=== PATIENT | female | born 1990 | race Caucasian/White ===

== ENCOUNTER 2017-02-16 02:53 | Emergency (ER) | payer SELFPAY ==
[2017-02-16] MEDS ORDERED: Ketorolac 60 MG/2 ML SDV IM ONE (04:02)
--- NOTE | 2017-02-16 04:05 | EDM.PDOC ---
ED HPI ENT - General Chief Complaint: ENT Problem Stated Complaint: TOOTHACHE Time Seen by Provider: 02/16/17 02:55 Source of Information: Reports: Patient History Limitations: Reports: No limitations - History of Present Illness INITIAL COMMENTS - FREE TEXT/NARRATIVE: HISTORY AND PHYSICAL: History of present illness: [] 26-year-old female now complaining of left jaw toothache. Patient states her "enamel is worn away. " No swelling or mass intraorally and no facial swelling per patient. No fevers chills sweats or shaking chills no chest pain or shortness of air. Patient denies headache or stiff neck. Review of systems: As per history of present illness and below otherwise all systems reviewed and negative. Past medical history: As per history of present illness and as reviewed below otherwise noncontributory. Surgical history: As per history of present illness and as reviewed below otherwise noncontributory. Social history: No reported history of drug or alcohol abuse. Family history: As per history of present illness and as reviewed below otherwise noncontributory. Physical exam: HEENT: Atraumatic, normocephalic, pupils reactive, negative for conjunctival pallor or scleral icterus, mucous membranes moist, throat clear, neck supple, nontender, trachea midline. Lungs: Clear to auscultation, breath sounds equal bilaterally, chest nontender. Heart: S1S2, regular, negative for clicks, rubs, or JVD. Abdomen: Soft, nondistended, nontender. Negative for masses or hepatosplenomegaly. Negative for costovertebral tenderness. Pelvis: Stable nontender. Genitourinary: Deferred. Rectal: Deferred. Extremities: Atraumatic, negative for cords or calf pain. Neurovascular unremarkable. Neuro: Awake, alert, oriented. Cranial nerves II through XII unremarkable. Cerebellum unremarkable. Motor and sensory unremarkable throughout. Exam nonfocal. Diagnostics: [] Therapeutics: [] Impression: [] Plan: [] Definitive disposition and diagnosis as appropriate pending reevaluation and review of above. - Related Data Allergies/ADRs: Allergies Allergy/AdvReac Type Severity Reaction Status Date / Time No Known Allergies Allergy Verified 02/16/17 03:09 Home Meds: Home Meds Penicillin V Potassium [IJP: Penicillin V Potassium] 500 mg PO .EVERY 6 HOURS # 40 tab 02/16/17 [Rx] Past Medical History HEENT History: Reports: Other (see below) Other HEENT History: broken/missing teeth Gastrointestinal History: Reports: Other (see below) Other Gastrointestinal History: ruptured appy - Infectious Disease History Infectious Disease History: Reports: Chicken pox - Past Surgical History GI Surgical History: Reports: Appendectomy Musculoskeletal Surgical History: Reports: Shoulder surgery Social & Family History - Family History Endocrine/Metabolic: Reports: Diabetes, type II - Tobacco Use Smoking Status *Q: Never Smoker Second Hand Smoke Exposure: No - Caffeine Use Caffeine Use: Reports: Coffee Caffeine Use Comment: 1 daily - Recreational Drug Use Recreational Drug Use: No ED ROS ENT - Review of Systems Review Of Systems: See Below (Per history of present illness) ED EXAM, ENT - Physical Exam Exam: See Below (Per history of present illness) Course - Vital Signs Text/Narrative:: Patient with toothache. She has no evidence of visible abscess or facial swelling. #29 Tooth as a small cavity at the gumline. Patient is well-appearing in tooth is not tender to percussion patient agrees to toradoll shot and penicillin prescription him an outpatient followup with her dentist. Patient then refused a Toradol shot in the nurse offered it. She is aware to followup with her dentist and use Motrin and Tylenol as needed Last Recorded V/S: Last Vital Signs Temp 36.6 C 02/16/17 03:01 Pulse 75 02/16/17 03:01 Resp 16 02/16/17 03:01 BP 118/60 02/16/17 03:01 Pulse Ox 96 02/16/17 03:01 - Orders/Labs/Meds Orders: Active Orders 24 hr Category Date Time Status Penicillin V Potassium [Veetids] Med 02/16/17 04:15 Active 500 mg PO Q8H Medication Orders Penicillin V Potassium (Veetids) 500 mg PO Q8H KARLO Last Admin: 02/16/17 04:19 Dose: 500 mg Meds: Medications Generic Name Dose Route Start Last Admin Trade Name Freq PRN Reason Stop Dose Admin Penicillin V Potassium 500 mg 02/16/17 04:15 02/16/17 04:19 Veetids PO 500 mg Q8H KARLO Administration Discontinued Medications Generic Name Dose Route Start Last Admin Trade Name Freq PRN Reason Stop Dose Admin Ketorolac Tromethamine 60 mg 02/16/17 04:02 02/16/17 04:19 Toradol IM 02/16/17 04:03 Not Given ONETIME ONE Departure - Departure Time of Disposition: 04:05 Disposition: Home, Self-Care 01 Condition: good Clinical Impression: Toothache, Caries Prescriptions: Penicillin V Potassium [IJP: Penicillin V Potassium] 500 mg PO .EVERY 6 HOURS # 40 tab Instructions: Dental Caries Referrals: PCP,None [Primary Care Provider] - Forms: ED Department Discharge Additional Instructions: You have a cavity and the fact that it is hurting you suggestive of an evolving dental infection. Finish penicillin as prescribed. Take Motrin and Tylenol as needed for pain. Follow up with your dentist on Friday. - My Orders Last 24 Hours: My Active Orders 02/16/17 04:15 Penicillin V Potassium [Veetids] 500 mg PO Q8H - Assessment/Plan Last 24 Hours: My Active Orders 02/16/17 04:15 Penicillin V Potassium [Veetids] 500 mg PO Q8H
[2017-02-16] MEDS ORDERED: Penicillin V Potassium 500 MG Tab PO SCH (04:15)
[2017-02-16 04:37] VITALS: BP 121/58
== END 2017-02-16 04:37 | disposition home or self-care (01) ==
LOC: MW.ED 02:53
DX: K08.89 Other specified disorders of teeth and supporting structures (principal); K02.9 Dental caries, unspecified; Z90.49 Acquired absence of other specified parts of digestive tract; Z98.890 Other specified postprocedural states
CPT/HCPCS: 99282; A9270; 99283

== ENCOUNTER 2019-02-09 22:34 | Inpatient (IN) | payer OTHER ==
--- NOTE | 2019-02-10 01:40 | US ---
INDICATION: Decreased movement TECHNIQUE: Ultrasound OB pelvis transabdominal. Real-time edwards-scale imaging of the fetus was performed with color Doppler and spectral Doppler analysis of the umbilical artery without stress testing. COMPARISON: None FINDINGS: Sonographic imaging demonstrates a single living intrauterine gestation. Fetus demonstrates a regular cardiac rate of 156 beats per minute. Fetus has a cephalic orientation. The placenta lies posterior. Amniotic fluid volume appears low normal with an JELENA of 5.4 cm. motion and tone were observed. IMPRESSION: 1. Single live intrauterine gestation with a clinical age of 40 weeks 1 day in vertex position. 2. Biophysical profile score of 6 out of 8 with 0 points given for breathing. 3. Low normal amniotic fluid index of 5.4 centimeters. Dictated by Miguel Horvath MD @ Feb 10 2019 1:33AM Signed by Dr. Miguel Horvath @ Feb 10 2019 1:38AM
[2019-02-10] MEDS ORDERED: Lactated Ringers 1,000 ML IV SCH (02:00)
[2019-02-10] MEDS ORDERED: Tranexamic Acid 1,000 MG in Sodium Chloride 0.9% 100 ML IV PRN (04:46)
[2019-02-10] MEDS ORDERED: Water For Irrigation,Sterile 1,000 ML Container IRR PRN (04:46)
[2019-02-10] MEDS ORDERED: Misoprostol 200 MCG Tab PO PRN (04:46)
[2019-02-10] MEDS ORDERED: Butorphanol 1 MG/ML SDV IVPUSH PRN (04:46)
[2019-02-10] MEDS ORDERED: Terbutaline 1 MG/ML SDV SUBCUT PRN (04:46)
[2019-02-10] MEDS ORDERED: Sodium Chloride 0.9% 10 ML SDV IV PRN (04:46)
[2019-02-10] MEDS ORDERED: Lidocaine 1% 50 ML MDV INJECT PRN (04:46)
[2019-02-10] MEDS ORDERED: Methylergonovine 0.2 MG/1 ML Amp IM PRN (04:46)
[2019-02-10] MEDS ORDERED: Nalbuphine 10 MG/1 ML Vial IVPUSH PRN (04:46)
[2019-02-10] MEDS ORDERED: Sodium Chloride 0.9% 10 ML Syringe FLUSH PRN (04:46)
[2019-02-10] MEDS ORDERED: Sodium Chloride 0.9% 2.5 ML Syringe FLUSH PRN (04:46)
[2019-02-10] MEDS ORDERED: Carboprost Tromethamine 250 MCG/1 ML Amp IM PRN (04:46)
[2019-02-10] MEDS ORDERED: Oxytocin/0.9 % Sodium Chloride 30 UNIT/500 ML BAG IV SCH ×2 (05:00)
[2019-02-10] MEDS: Lactated Ringers 1,000 ML IV SCH ×2 (05:18→09:33)
[2019-02-10] MEDS ORDERED: Lidocaine 1% 0 ML ONE (12:40)
--- NOTE | 2019-02-10 13:04 | PCM.DEL ---
<FredyCriss - Last Filed: 02/10/19 12:58> L & D Note - General Info Date of Service: 02/10/19 Mother's Due Date: 02/09/19 - Delivery Note Labor: Augmented by Oxytocin Delivery Outcome: Livebirth Infant Delivery Method: Spontaneous Vaginal Delivery-Single Infant Delivery Mode: Spontaneous Presentation: Right Occiput Anterior (CANDY) Nuchal Cord: None Anesthesia Type: Epidural Amniotic Fluid Description: Clear Episiotomy Type: None Laceration: 2nd Degree Suture type: Other (Monocryl) Suture size: 3-0 Placenta: Intact Cord: 3 Vessels Estimated Blood Loss: 300 Resuscitation Needed: No Richards: Bulb Syringe, [place] Used, Warmer Used Score 1 min: 8 Score 5 min: 9 Second Stage Interventions: Reports: Pushing Effectively Delivery Comments (Free Text/Narrative):: live male born at 12:31, APGARs 8/9, weight 3620g , 3 vessel cord - General Info Date of Service: 02/10/19 - Patient Data Weight - Most Recent: 73.936 kg Lab Results Last 24 Hours: Laboratory Results - last 24 hr 02/10/19 02/10/19 Range/Units 06:00 06:00 WBC 9.73 (4.0-11.0) K/uL RBC 3.66 L (4.30-5.90) M/uL Hgb 10.9 L (12.0-16.0) g/dL Hct 31.9 L (36.0-46.0) % MCV 87.2 (80.0-98.0) fL MCH 29.8 (27.0-32.0) pg MCHC 34.2 (31.0-37.0) g/dL RDW Std Deviation 42.6 (28.0-62.0) fl RDW Coeff of Celeste 13 (11.0-15.0) % Plt Count 181 (150-400) K/uL MPV 10.90 (7.40-12.00) fL Nucleated RBC % 0.0 /100WBC Nucleated RBCs # 0 K/uL Blood Type A POSITIVE Antibody Screen NEGATIVE Med Orders - Current: Current Medications Butorphanol Tartrate (Stadol) 1 mg IVPUSH Q1H PRN PRN Reason: Pain Last Admin: 02/10/19 07:36 Dose: 1 mg Carboprost Tromethamine (Hemabate Ds) 250 mcg IM ASDIRECTED PRN PRN Reason: Post Hemorrhage Lactated Ringer's (Ringers, Lactated) 1,000 mls @ 999 mls/hr IV ASDIRECTED KARLO Last Admin: 02/10/19 01:45 Dose: 999 mls/hr Tranexamic Acid 1,000 mg/ (Sodium Chloride) 110 mls @ 660 mls/hr IV ONETIME PRN PRN Reason: Bleeding Lactated Ringer's (Ringers, Lactated) 1,000 mls @ 150 mls/hr IV ASDIRECTED KARLO Last Admin: 02/10/19 09:33 Dose: 150 mls/hr Oxytocin/Sodium Chloride (Oxytocin 30 Unit/500 Ml-Ns) 30 unit in 500 mls @ 555 mls/hr IV TITRATE KARLO Oxytocin/Sodium Chloride (Oxytocin 30 Unit/500 Ml-Ns) 30 unit in 500 mls @ 1 mls/hr IV TITRATE KARLO; Protocol Last Titration: 02/10/19 10:29 Dose: 8 munits/min, 8 mls/hr Lidocaine HCl (Xylocaine 1%) 50 ml INJECT ONETIME PRN PRN Reason: Laceration repair Methylergonovine Maleate (Methergine) 0.2 mg IM ASDIRECTED PRN PRN Reason: Post Hemorrhage Misoprostol (Cytotec) 200 mcg PO ONETIME PRN PRN Reason: Post Hemorrhage Nalbuphine HCl (Nubain) 10 mg IVPUSH Q1H PRN PRN Reason: Pain (severe 7-10) Sodium Chloride (Saline Flush) 10 ml FLUSH ASDIRECTED PRN PRN Reason: Keep Vein Open Sodium Chloride (Saline Flush) 2.5 ml FLUSH ASDIRECTED PRN PRN Reason: Keep Vein Open Sodium Chloride (Normal Saline) 10 ml IV ASDIRECTED PRN PRN Reason: IV Use Sterile Water (Sterile Water For Irrigation) 1,000 ml IRR ASDIRECTED PRN PRN Reason: delivery Terbutaline Sulfate (Brethine) 0.25 mg SUBCUT ASDIRECTED PRN PRN Reason: Tacysystole Discontinued Medications Lidocaine HCl (Xylocaine-Mpf 1%) Confirm Administered Dose 5 mls @ as directed .ROUTE .[facility]-MED ONE Stop: 02/10/19 12:41 - Problem List & Annotations (1) Vaginal delivery SNOMED Code(s): 246046064 Code(s): O80 - ENCOUNTER FOR FULL-TERM UNCOMPLICATED DELIVERY Status: Acute Current Visit: Yes - Problem List Review Problem List Initiated/Reviewed/Updated: Yes <Shayna oWlff - Last Filed: 02/10/19 17:41> - Patient Data Lab Results Last 24 Hours: Laboratory Results - last 24 hr 02/10/19 02/10/19 Range/Units 06:00 06:00 WBC 9.73 (4.0-11.0) K/uL RBC 3.66 L (4.30-5.90) M/uL Hgb 10.9 L (12.0-16.0) g/dL Hct 31.9 L (36.0-46.0) % MCV 87.2 (80.0-98.0) fL MCH 29.8 (27.0-32.0) pg MCHC 34.2 (31.0-37.0) g/dL RDW Std Deviation 42.6 (28.0-62.0) fl RDW Coeff of Celeste 13 (11.0-15.0) % Plt Count 181 (150-400) K/uL MPV 10.90 (7.40-12.00) fL Nucleated RBC % 0.0 /100WBC Nucleated RBCs # 0 K/uL Blood Type A POSITIVE Antibody Screen NEGATIVE Med Orders - Current: Current Medications Acetaminophen (Tylenol Extra Strength) 500 mg PO Q4H PRN PRN Reason: Pain Acetaminophen (Tylenol Extra Strength) 1,000 mg PO Q4H PRN PRN Reason: Pain Last Admin: 02/10/19 15:33 Dose: 1,000 mg Benzocaine/Menthol (Dermoplast Pain Relief 20%-0.5% [place]) 78 gm TOP ASDIRECTED PRN PRN Reason: Perineal Comfort Measure Last Admin: 02/10/19 15:32 Dose: 78 gm Bisacodyl (Dulcolax) 10 mg RECTAL ONETIME PRN PRN Reason: Constipation Carboprost Tromethamine (Hemabate Ds) 250 mcg IM ASDIRECTED PRN PRN Reason: Post Hemorrhage Docusate Sodium (Colace) 100 mg PO BID PRN PRN Reason: Constipation Last Admin: 02/10/19 15:34 Dose: 100 mg Emollient Ointment (Lansinoh Hpa) 0 gm TOP ASDIRECTED PRN PRN Reason: Sore Nipples Last Admin: 02/10/19 15:35 Dose: 7 gm Lactated Ringer's (Ringers, Lactated) 1,000 mls @ 999 mls/hr IV ASDIRECTED KARLO Last Infusion: 02/10/19 13:22 Dose: Infused Tranexamic Acid 1,000 mg/ (Sodium Chloride) 110 mls @ 660 mls/hr IV ONETIME PRN PRN Reason: Bleeding Lactated Ringer's (Ringers, Lactated) 1,000 mls @ 150 mls/hr IV ASDIRECTED KARLO Last Infusion: 02/10/19 12:31 Dose: 0 mls/hr Oxytocin/Sodium Chloride (Oxytocin 30 Unit/500 Ml-Ns) 30 unit in 500 mls @ 555 mls/hr IV TITRATE KARLO Oxytocin/Sodium Chloride (Oxytocin 30 Unit/500 Ml-Ns) 30 unit in 500 mls @ 1 mls/hr IV TITRATE KARLO; Protocol Last Titration: 02/10/19 12:31 Dose: 999 munits/min, 999 mls/hr Ibuprofen (Motrin) 400 mg PO Q4H PRN PRN Reason: Pain Ibuprofen (Motrin) 800 mg PO Q6H PRN PRN Reason: Pain Lidocaine HCl (Xylocaine 1%) 50 ml INJECT ONETIME PRN PRN Reason: Laceration repair Methylergonovine Maleate (Methergine) 0.2 mg IM ASDIRECTED PRN PRN Reason: Post Hemorrhage Misoprostol (Cytotec) 200 mcg PO ONETIME PRN PRN Reason: Post Hemorrhage Oxycodone HCl (Oxycodone) 5 mg PO Q2H PRN PRN Reason: Pain Sodium Chloride (Saline Flush) 10 ml FLUSH ASDIRECTED PRN PRN Reason: Keep Vein Open Sodium Chloride (Saline Flush) 2.5 ml FLUSH ASDIRECTED PRN PRN Reason: Keep Vein Open Sodium Chloride (Normal Saline) 10 ml IV ASDIRECTED PRN PRN Reason: IV Use Sterile Water (Sterile Water For Irrigation) 1,000 ml IRR ASDIRECTED PRN PRN Reason: delivery Last Admin: 02/10/19 12:31 Dose: 1,000 ml Terbutaline Sulfate (Brethine) 0.25 mg SUBCUT ASDIRECTED PRN PRN Reason: Tacysystole Witla Lnua (Tucks) 1 pad TOP ASDIRECTED PRN PRN Reason: comfort care Last Admin: 02/10/19 15:32 Dose: 1 pad Discontinued Medications Butorphanol Tartrate (Stadol) 1 mg IVPUSH Q1H PRN PRN Reason: Pain Last Admin: 02/10/19 07:36 Dose: 1 mg Lidocaine HCl (Xylocaine-Mpf 1%) Confirm Administered Dose 5 mls @ as directed .ROUTE .STK-MED ONE Stop: 02/10/19 12:41 Nalbuphine HCl (Nubain) 10 mg IVPUSH Q1H PRN PRN Reason: Pain (severe 7-10)
[2019-02-10] MEDS ORDERED: Ibuprofen 400 MG Tab PO PRN (13:06)
[2019-02-10] MEDS ORDERED: Acetaminophen 500 MG Tab PO PRN (13:06)
[2019-02-10] MEDS ORDERED: Benzocaine/Menthol 20%-0.5% Spray 78 GM Cannister TOP PRN (13:06)
[2019-02-10] MEDS ORDERED: Lanolin 100% Cream 7 GM Tube TOP PRN (13:06)
[2019-02-10] MEDS ORDERED: Bisacodyl 10 MG Supp RECTAL PRN (13:06)
[2019-02-10] MEDS ORDERED: Ibuprofen 800 MG Tab PO PRN (13:06)
[2019-02-10] MEDS ORDERED: Witch Hazel Medicated Pads 40/Jar TOP PRN (13:06)
[2019-02-10] MEDS ORDERED: oxyCODONE 5 MG Tab PO PRN (13:06)
[2019-02-10] MEDS: Acetaminophen 500 MG Tab PO PRN ×2 (15:33→21:46)
[2019-02-10] MEDS: Docusate Sodium 100 MG Cap PO PRN (15:34)
[2019-02-11] MEDS: Acetaminophen 500 MG Tab PO PRN (03:57)
--- NOTE | 2019-02-11 04:04 | OR ---
SURGEON: OSKAR MUNIZ MS GARCIA DATE OF PROCEDURE: 02/10/2017 PREOPERATIVE DIAGNOSES: A 28-year-old, 4, para 1-0-2-1, at 40 weeks 1 day, undergoing augmentation of labor for decreased movement. POSTOPERATIVE DIAGNOSES: A 28-year-old, 4, para 1-0-2-1, at 40 weeks 1 day, undergoing augmentation of labor for decreased movement. PROCEDURES: Normal spontaneous vaginal delivery and repair of second-degree vaginal laceration. ESTIMATED BLOOD LOSS: 200. ANESTHESIA: Epidural FINDINGS: A live male delivered at 12:31. scores were 8 and 9. Weight is 3620 g. BRIEF HISTORY ABOUT THE PATIENT: She came in complaining of contractions. She was found to be dilated. She was started on Pitocin, and the patient made change and became fully dilated, and she had a good normal labor curve. The patient fully dilated. She was encouraged to push. PROCEDURE IN DETAIL: With good pushing effort, the patient delivered the head followed subsequently by the anterior and posterior shoulder, and the body of the was delivered. was placed on maternal abdomen. Delayed cord clamping was observed. Cord was clamped and cut. The placenta was delivered via controlled cord traction. The perineum was inspected, and a second degree laceration was noted. The laceration was sutured in layers with 2-0 Monocryl. After which, the incision was inspected. It was noted to be hemostatic. Bimanual massage was done, and bleeding was normal. All instrument and pad counts were correct x2. The patient tolerated the procedure well and was left in the recovery room in stable condition. . ANTONIO / RGANT /[id number] AILEEN
--- NOTE | 2019-02-11 08:15 | PCM.PNPP ---
<Suzy Whittington - Last Filed: 02/11/19 08:11> - General Info Date of Service: 02/11/19 Functional Status: Reports: Pain Controlled, Tolerating Diet, Ambulating, Urinating - Review of Systems General: Denies: Fever, Weakness, Fatigue Pulmonary: Denies: Shortness of Breath, Pleuritic Chest Pain, Cough Cardiovascular: Denies: Chest Pain, Palpitations, Dyspnea on Exertion Gastrointestinal: Denies: Abdominal Pain Genitourinary: Denies: Dysuria - General Info Date of Service: 02/11/19 - Patient Data Vital Signs - Most Recent: Last Vital Signs Temp 36.7 C 02/11/19 04:10 Pulse 79 02/11/19 04:10 Resp 17 02/11/19 04:10 BP 118/74 02/11/19 04:10 Pulse Ox 91 L 02/11/19 04:10 Weight - Most Recent: 73.936 kg Lab Results - Last 24 Hours: Laboratory Results - last 24 hr 02/11/19 Range/Units 05:20 Hgb 10.3 L (12.0-16.0) g/dL Hct 30.5 L (36.0-46.0) % Med Orders - Current: Current Medications Acetaminophen (Tylenol Extra Strength) 500 mg PO Q4H PRN PRN Reason: Pain Acetaminophen (Tylenol Extra Strength) 1,000 mg PO Q4H PRN PRN Reason: Pain Last Admin: 02/11/19 03:57 Dose: 1,000 mg Benzocaine/Menthol (Dermoplast Pain Relief 20%-0.5% [place]) 78 gm TOP ASDIRECTED PRN PRN Reason: Perineal Comfort Measure Last Admin: 02/10/19 15:32 Dose: 78 gm Bisacodyl (Dulcolax) 10 mg RECTAL ONETIME PRN PRN Reason: Constipation Carboprost Tromethamine (Hemabate Ds) 250 mcg IM ASDIRECTED PRN PRN Reason: Post Hemorrhage Docusate Sodium (Colace) 100 mg PO BID PRN PRN Reason: Constipation Last Admin: 02/10/19 15:34 Dose: 100 mg Emollient Ointment (Lansinoh Hpa) 0 gm TOP ASDIRECTED PRN PRN Reason: Sore Nipples Last Admin: 02/10/19 15:35 Dose: 7 gm Lactated Ringer's (Ringers, Lactated) 1,000 mls @ 999 mls/hr IV ASDIRECTED KARLO Last Infusion: 02/10/19 13:22 Dose: Infused Tranexamic Acid 1,000 mg/ (Sodium Chloride) 110 mls @ 660 mls/hr IV ONETIME PRN PRN Reason: Bleeding Lactated Ringer's (Ringers, Lactated) 1,000 mls @ 150 mls/hr IV ASDIRECTED KARLO Last Infusion: 02/10/19 12:31 Dose: 0 mls/hr Oxytocin/Sodium Chloride (Oxytocin 30 Unit/500 Ml-Ns) 30 unit in 500 mls @ 555 mls/hr IV TITRATE KARLO Oxytocin/Sodium Chloride (Oxytocin 30 Unit/500 Ml-Ns) 30 unit in 500 mls @ 1 mls/hr IV TITRATE KARLO; Protocol Last Titration: 02/10/19 12:31 Dose: 999 munits/min, 999 mls/hr Ibuprofen (Motrin) 400 mg PO Q4H PRN PRN Reason: Pain Ibuprofen (Motrin) 800 mg PO Q6H PRN PRN Reason: Pain Lidocaine HCl (Xylocaine 1%) 50 ml INJECT ONETIME PRN PRN Reason: Laceration repair Methylergonovine Maleate (Methergine) 0.2 mg IM ASDIRECTED PRN PRN Reason: Post Hemorrhage Misoprostol (Cytotec) 200 mcg PO ONETIME PRN PRN Reason: Post Hemorrhage Oxycodone HCl (Oxycodone) 5 mg PO Q2H PRN PRN Reason: Pain Prenat Multivit/Obion/Iron/Folic Ac ( Mtr) 1 each PO DAILY [facility] Sodium Chloride (Saline Flush) 10 ml FLUSH ASDIRECTED PRN PRN Reason: Keep Vein Open Sodium Chloride (Saline Flush) 2.5 ml FLUSH ASDIRECTED PRN PRN Reason: Keep Vein Open Sodium Chloride (Normal Saline) 10 ml IV ASDIRECTED PRN PRN Reason: IV Use Sterile Water (Sterile Water For Irrigation) 1,000 ml IRR ASDIRECTED PRN PRN Reason: delivery Last Admin: 02/10/19 12:31 Dose: 1,000 ml Terbutaline Sulfate (Brethine) 0.25 mg SUBCUT ASDIRECTED PRN PRN Reason: Tacysystole Witch Luna (Tucks) 1 pad TOP ASDIRECTED PRN PRN Reason: comfort care Last Admin: 02/10/19 15:32 Dose: 1 pad Discontinued Medications Butorphanol Tartrate (Stadol) 1 mg IVPUSH Q1H PRN PRN Reason: Pain Last Admin: 02/10/19 07:36 Dose: 1 mg Lidocaine HCl (Xylocaine-Mpf 1%) Confirm Administered Dose 5 mls @ as directed .ROUTE .STK-MED ONE Stop: 02/10/19 12:41 Nalbuphine HCl (Nubain) 10 mg IVPUSH Q1H PRN PRN Reason: Pain (severe 7-10) - Interaction Disposition, : in Room with Family Interaction: Holding Infant Infant Feeding: Bottle Fed Support Person: - Recovery Exam Fundal Tone: Firm Fundal Level: 2 Fingerbreadths Below Umbilicus Fundal Placement: Midline Lochia Amount: Small Lochia Color: Rubra/Red Perineum Description: Other (see below) Other Perinuem Description: 2nd degree tear, repaired Episiotomy/Laceration: Approximated Bladder Status: Voiding Urinary Elimination: Voided - Exam General: Alert, Oriented Neck: Supple Lungs: Clear to Auscultation, Normal Respiratory Effort Cardiovascular: Regular Rate, Regular Rhythm GI/Abdominal Exam: Normal Bowel Sounds, Soft, Non-Tender, No Distention, No Mass Extremities: Normal Inspection, Non-Tender, Normal Capillary Refill, Pedal Edema (trace) Skin: Warm, Dry, Intact - Problem List & Annotations (1) Vaginal delivery SNOMED Code(s): 652651811 Code(s): O80 - ENCOUNTER FOR FULL-TERM UNCOMPLICATED DELIVERY Status: Acute Current Visit: Yes - Problem List Review Problem List Initiated/Reviewed/Updated: Yes - Assessment Assessment:: PPD #1 s/p . Minimal pain and lochia. Bottle feeding. Discharge home today. - Plan Plan:: Discharge instructions reviewed. Can use OTC ibuprofen/tylenol as needed for pain. Pelvic rest for 6 weeks. Instructed patient to call if she develops fever greater than 101 or bleeding through a large pad an hour. F/U with [facility] in 6 weeks <Shayna Wolff - Last Filed: 02/11/19 15:57> - Patient Data Vital Signs - Most Recent: Last Vital Signs Temp 36.8 C 02/11/19 08:00 Pulse 82 02/11/19 08:00 Resp 17 02/11/19 08:42 BP 118/71 02/11/19 08:00 Pulse Ox 95 02/11/19 08:00 Lab Results - Last 24 Hours: Laboratory Results - last 24 hr 02/11/19 Range/Units 05:20 Hgb 10.3 L (12.0-16.0) g/dL Hct 30.5 L (36.0-46.0) % Med Orders - Current: Current Medications Acetaminophen (Tylenol Extra Strength) 500 mg PO Q4H PRN PRN Reason: Pain Acetaminophen (Tylenol Extra Strength) 1,000 mg PO Q4H PRN PRN Reason: Pain Last Admin: 02/11/19 03:57 Dose: 1,000 mg Benzocaine/Menthol (Dermoplast Pain Relief 20%-0.5% [place]) 78 gm TOP ASDIRECTED PRN PRN Reason: Perineal Comfort Measure Last Admin: 02/10/19 15:32 Dose: 78 gm Bisacodyl (Dulcolax) 10 mg RECTAL ONETIME PRN PRN Reason: Constipation Carboprost Tromethamine (Hemabate Ds) 250 mcg IM ASDIRECTED PRN PRN Reason: Post Hemorrhage Docusate Sodium (Colace) 100 mg PO BID PRN PRN Reason: Constipation Last Admin: 02/11/19 08:24 Dose: 100 mg Emollient Ointment (Lansinoh Hpa) 0 gm TOP ASDIRECTED PRN PRN Reason: Sore Nipples Last Admin: 02/10/19 15:35 Dose: 7 gm Lactated Ringer's (Ringers, Lactated) 1,000 mls @ 999 mls/hr IV ASDIRECTED KARLO Last Infusion: 02/10/19 13:22 Dose: Infused Tranexamic Acid 1,000 mg/ (Sodium Chloride) 110 mls @ 660 mls/hr IV ONETIME PRN PRN Reason: Bleeding Lactated Ringer's (Ringers, Lactated) 1,000 mls @ 150 mls/hr IV ASDIRECTED KARLO Last Infusion: 02/10/19 12:31 Dose: 0 mls/hr Oxytocin/Sodium Chloride (Oxytocin 30 Unit/500 Ml-Ns) 30 unit in 500 mls @ 555 mls/hr IV TITRATE KARLO Oxytocin/Sodium Chloride (Oxytocin 30 Unit/500 Ml-Ns) 30 unit in 500 mls @ 1 mls/hr IV TITRATE KARLO; Protocol Last Titration: 02/10/19 12:31 Dose: 999 munits/min, 999 mls/hr Ibuprofen (Motrin) 400 mg PO Q4H PRN PRN Reason: Pain Ibuprofen (Motrin) 800 mg PO Q6H PRN PRN Reason: Pain Last Admin: 02/11/19 08:25 Dose: 800 mg Lidocaine HCl (Xylocaine 1%) 50 ml INJECT ONETIME PRN PRN Reason: Laceration repair Methylergonovine Maleate (Methergine) 0.2 mg IM ASDIRECTED PRN PRN Reason: Post Hemorrhage Misoprostol (Cytotec) 200 mcg PO ONETIME PRN PRN Reason: Post Hemorrhage Oxycodone HCl (Oxycodone) 5 mg PO Q2H PRN PRN Reason: Pain Prenat Multivit/Obion/Iron/Folic Ac ( Mtr) 1 each PO DAILY KARLO Last Admin: 02/11/19 08:25 Dose: 1 each Sodium Chloride (Saline Flush) 10 ml FLUSH ASDIRECTED PRN PRN Reason: Keep Vein Open Sodium Chloride (Saline Flush) 2.5 ml FLUSH ASDIRECTED PRN PRN Reason: Keep Vein Open Sodium Chloride (Normal Saline) 10 ml IV ASDIRECTED PRN PRN Reason: IV Use Sterile Water (Sterile Water For Irrigation) 1,000 ml IRR ASDIRECTED PRN PRN Reason: delivery Last Admin: 02/10/19 12:31 Dose: 1,000 ml Terbutaline Sulfate (Brethine) 0.25 mg SUBCUT ASDIRECTED PRN PRN Reason: Tacysystole Witch Luna (Tucks) 1 pad TOP ASDIRECTED PRN PRN Reason: comfort care Last Admin: 02/10/19 15:32 Dose: 1 pad Discontinued Medications Butorphanol Tartrate (Stadol) 1 mg IVPUSH Q1H PRN PRN Reason: Pain Last Admin: 02/10/19 07:36 Dose: 1 mg Lidocaine HCl (Xylocaine-Mpf 1%) Confirm Administered Dose 5 mls @ as directed .ROUTE .STK-MED ONE Stop: 02/10/19 12:41 Nalbuphine HCl (Nubain) 10 mg IVPUSH Q1H PRN PRN Reason: Pain (severe 7-10) - Assessment Assessment:: PPD1 s/p stable - Plan Plan:: Agree with Plan
[2019-02-11] MEDS: Docusate Sodium 100 MG Cap PO PRN (08:24)
--- NOTE | 2019-02-11 08:42 | PCM48HPAN ---
Post Anesthesia Note - EVALUATION WITHIN 48HRS OF ANESTHETIC Vital Signs in Normal Range: Yes Patient Participated in Evaluation: Yes Respiratory Function Stable: Yes Airway Patent: Yes Cardiovascular Function Stable: Yes Hydration Status Stable: Yes Pain Control Satisfactory: Yes Nausea and Vomiting Control Satisfactory: Yes Mental Status Recovered: Yes Resp Rate: 17 - COMMENTS/OBSERVATIONS Free Text/Narrative:: Pt denies any problems post epidural.
[2019-02-11 08:53] VITALS: BP 118/71
[2019-02-11] MEDS ORDERED: Prenatal Multivitamin and Multimineral with Iron Tab PO SCH (09:00)
== END 2019-02-11 15:10 | disposition home or self-care (01) | DRG 806 ==
LOC: MW.OBCHECK 22:34 → MW.OB 02-10 04:47 → OBSVTOIN 02-10 13:07 → MW.OB 02-10 17:02
PROVIDERS: ADMIT Obstetrics & Gynecology; ATTEND Obstetrics & Gynecology
PROC: 10E0XZZ Delivery of Products of Conception, External Approach (ICD-10-PCS; principal; 2019-02-10)
PROC: 10907ZC Drainage of Amniotic Fluid, Therapeutic from Products of Conception, Via Natural or Artificial Opening (ICD-10-PCS; principal; 2019-02-10)
PROC: 0KQM0ZZ Repair Perineum Muscle, Open Approach (ICD-10-PCS; principal; 2019-02-10)
PROC: 00HU33Z Insertion of Infusion Device into Spinal Canal, Percutaneous Approach (ICD-10-PCS; 2019-02-10)
PROC: 3E0R3BZ Introduction of Anesthetic Agent into Spinal Canal, Percutaneous Approach (ICD-10-PCS; 2019-02-10)
DX: O48.0 Post-term pregnancy (principal); O98.32 Other infections with a predominantly sexual mode of transmission complicating childbirth; Z37.0 Single live birth; O70.1 Second degree perineal laceration during delivery; O36.8130 Decreased fetal movements, third trimester, not applicable or unspecified; A60.00 Herpesviral infection of urogenital system, unspecified; Z3A.40 40 weeks gestation of pregnancy
CPT/HCPCS: 36415; 51702; 59025; 59409; 76819; 76819-26; 85014; 85018; 85027; 86850; 86900; 86901; A9270-GY; J0595; J2001; J2590; J7120

== ENCOUNTER 2019-03-04 10:41 | Emergency (ER) | payer OTHER ==
[2019-03-04] MEDS ORDERED: Ketorolac 30 MG/ML SDV IVPUSH ONE (10:53)
[2019-03-04] MEDS ORDERED: Ondansetron 4 MG/2 ML SDV IVPUSH ONE (10:53)
[2019-03-04] MEDS ORDERED: Sodium Chloride 0.9% 1,000 ML IV ONE (10:53)
--- NOTE | 2019-03-04 11:03 | EDM.PDOC ---
ED HPI GENERAL MEDICAL PROBLEM - General Chief Complaint: Abdominal Pain Stated Complaint: ABDOMINAL PAIN Time Seen by Provider: 03/04/19 10:42 Source of Information: Reports: Patient History Limitations: Reports: No Limitations - History of Present Illness INITIAL COMMENTS - FREE TEXT/NARRATIVE: HISTORY AND PHYSICAL: History of present illness: Patient is a 28-year-old female who presents to the ED today with concerns of left lower abdominal pain that she rates a 10 out of 10 since this morning. Patient describes the pain as dull and constant. She is s/p 3 weeks of an uncomplicated vaginal delivery. She states she is still having bloody vaginal discharge but that the amount has drastically decreased since delivery. She says she has about 1 pad per day. She denies any sexual activity since and denies any infection after delivery. She does have a history of an appendectomy but denies any other abdominal surgeries. She states her last bowel movement was yesterday and was normal for her. She states she is able to urinate without difficulty. Patient states she has had some nausea or abdominal pain but no vomiting. Patient denies fever, chills, chest pain, shortness of breath, or cough. Denies headache, neck stiff ness, change in vision, syncope, or near syncope. Denies vomiting, diarrhea, constipation, or dysuria. Has not noted any blood in urine or stool. Patient has been eating and drinking appropriately. Review of systems: As per history of present illness and below otherwise all systems reviewed and negative. Past medical history: As per history of present illness and as reviewed below otherwise noncontributory. Surgical history: As per history of present illness and as reviewed below otherwise noncontributory. Social history: See social history for further information Family history: As per history of present illness and as reviewed below otherwise noncontributory. Physical exam: General: Patient is alert, oriented, and in no acute distress. She is sitting comfortably on exam table. HEENT: Atraumatic, normocephalic, pupils equal and reactive bilaterally, negative for conjunctival pallor or scleral icterus, mucous membranes moist, TMs normal bilaterally, throat clear, neck supple, nontender, trachea midline. No drooling or trismus noted. No meningeal signs. No hot potato voice noted. Lungs: Clear to auscultation, breath sounds equal bilaterally, chest nontender. Heart: S1S2, regular rate and rhythm without overt murmur Abdomen: Moderate pain to palpation of the left lower quadrant without guarding. Otherwise, soft, nondistended. Negative for masses or hepatosplenomegaly. Negative for costovertebral tenderness. Pelvis: Stable nontender. Genitourinary: External genitalia grossly unremarkable. The vaginal canal does have a blood tinge discharge. Cervix approximately 1 cm open. Negative cervical motion tenderness. Uterus approximately 8 weeks in size and negative pain to palpation. Rectal: Deferred. Skin: Intact, warm, dry. No lesions or rashes noted. Extremities: Atraumatic, negative for cords or calf pain. Neurovascular unremarkable. Neuro: Awake, alert, oriented. Cranial nerves II through XII unremarkable. Cerebellum unremarkable. Motor and sensory unremarkable throughout. Exam nonfocal. Notes: Labs and imaging today. Pelvic CT shows 4 mm obstructing stone within the distal left ureter with moderate proximal hydronephrosis. Discussed these findings with patient and discussed the importance of follow up with Urology. Supportive care measures were reviewed and discussed. Voices understanding and is agreeable to plan of care. Denies any further questions or concerns at this time. Diagnostics: CBC, CMP, UA, Uhcg, abd/pelvic CT, urine culture Therapeutics: Saline, Toradol, Zofran Prescription: [place] #15, flomax Impression: Ureterolithiasis Plan: 1. Take medications as prescribed. Caution using [place] as this can cause drowsiness and sedation. Caution nonfunctioning upset at home and do not operate heavy equipment or machinery/drive. 2. You can alternate ibuprofen and Tylenol as directed for pain and discomfort. 3. Follow up with Urology as discussed. 4. Return to the ED as needed and as discussed. Definitive disposition and diagnosis as appropriate pending reevaluation and review of above. 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 Left Abdomen Pain Score (Numeric/FACES): 10 - Related Data Allergies Allergy/AdvReac Type Severity Reaction Status Date / Time No Known Allergies Allergy Verified 03/04/19 10:46 Home Meds: Home Meds Hydrocodone/Acetaminophen [[place] 5-325 Tablet] 1 each PO Q6HR PRN #15 tablet 03/19 [Rx] Pnv No.95/Ferrous Fum/Folic AC [ Caplet] 1 tab PO DAILY 03/04/19 [ History] Tamsulosin HCl [Flomax] 0.4 mg PO DAILY 7 Days #7 cap.er.24h 03/04/19 [Rx] Past Medical History HEENT History: Reports: Other (See Below) Other HEENT History: broken/missing teeth Gastrointestinal History: Reports: Other (See Below) Other Gastrointestinal History: ruptured appy 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: , 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: - Infectious Disease History Infectious Disease History: Reports: Chicken Pox, Herpes Other Infectious Disease History: HSV-2 - Past Surgical History Musculoskeletal Surgical History: Reports: Shoulder Surgery Social & Family History - Family History Family Medical History: Noncontributory Endocrine/Metabolic: Reports: Diabetes, type II - Tobacco Use Smoking Status *Q: Never Smoker - Caffeine Use Caffeine Use: Reports: None Caffeine Use Comment: 1 daily - Recreational Drug Use Recreational Drug Use: No ED ROS GENERAL - Review of Systems Review Of Systems: ROS reveals no pertinent complaints other than HPI. ED EXAM, GI/ABD - Physical Exam Exam: See Below (See dictation) Course - Vital Signs Last Recorded V/S: Last Vital Signs Temp 36.8 C 03/04/19 10:43 Pulse 66 03/04/19 10:43 Resp 20 03/04/19 10:43 BP 129/81 03/04/19 10:43 Pulse Ox 99 03/04/19 10:43 - Orders/Labs/Meds Labs: Laboratory Tests 03/04/19 03/04/19 03/04/19 Range/Units 11:12 11:12 11:12 WBC 8.04 (4.0-11.0) K/uL RBC 4.66 (4.30-5.90) M/uL Hgb 13.8 (12.0-16.0) g/dL Hct 40.8 (36.0-46.0) % MCV 87.6 (80.0-98.0) fL MCH 29.6 (27.0-32.0) pg MCHC 33.8 (31.0-37.0) g/dL RDW Std Deviation 43.0 (28.0-62.0) fl RDW Coeff of Celeste 14 (11.0-15.0) % Plt Count 291 (150-400) K/uL MPV 11.20 (7.40-12.00) fL Neut % (Auto) 67.2 (48.0-80.0) % Lymph % (Auto) 25.1 (16.0-40.0) % [place] % (Auto) 6.0 (0.0-15.0) % Eos % (Auto) 1.5 (0.0-7.0) % Baso % (Auto) 0.2 (0.0-1.5) % Neut # (Auto) 5.4 (1.4-5.7) K/uL Lymph # (Auto) 2.0 (0.6-2.4) K/uL [place] # (Auto) 0.5 (0.0-0.8) K/uL Eos # (Auto) 0.1 (0.0-0.7) K/uL Baso # (Auto) 0.0 (0.0-0.1) K/uL Nucleated RBC % 0.0 /100WBC Nucleated RBCs # 0 K/uL Sodium 143 (136-145) mmol/L Potassium 3.5 (3.5-5.1) mmol/L Chloride 106 (98-107) mmol/L Carbon Dioxide 23.8 (21.0-32.0) mmol/L BUN 13 (7.0-18.0) mg/dL Creatinine 1.0 (0.6-1.0) mg/dL Est Cr Clr Drug Dosing 86.96 mL/min Estimated GFR (MDRD) > 60.0 ml/min Glucose 93 (74-106) mg/dL Calcium 9.4 (8.5-10.1) mg/dL Total Bilirubin 0.8 (0.2-1.0) mg/dL AST 20 (15-37) IU/L ALT 23 (14-63) IU/L Alkaline Phosphatase 70 (46-116) U/L Total Protein 8.0 (6.4-8.2) g/dL Albumin 4.0 (3.4-5.0) g/dL Globulin 4.0 (2.6-4.0) g/dL Albumin/Globulin Ratio 1.0 (0.9-1.6) Lipase 88 (73-393) U/L Urine Color Urine Appearance Urine pH (5.0-8.0) Ur Specific [place] (1.001-1.035) Urine Protein (NEGATIVE) mg/dL Urine Glucose (UA) (NEGATIVE) mg/dL Urine Ketones (NEGATIVE) mg/dL Urine Occult Blood (NEGATIVE) Urine Nitrite (NEGATIVE) Urine Bilirubin (NEGATIVE) Urine Urobilinogen (<2.0) EU/dL Ur Leukocyte Esterase (NEGATIVE) Urine RBC (0-2/HPF) Urine WBC (0-5/HPF) Ur Epithelial Cells (NONE-FEW) Urine Bacteria (NEGATIVE) Urine HCG, Qual (NEGATIVE) 03/04/19 03/04/19 Range/Units 11:42 11:42 WBC (4.0-11.0) K/uL RBC (4.30-5.90) M/uL Hgb (12.0-16.0) g/dL Hct (36.0-46.0) % MCV (80.0-98.0) fL MCH (27.0-32.0) pg MCHC (31.0-37.0) g/dL RDW Std Deviation (28.0-62.0) fl RDW Coeff of Celeste (11.0-15.0) % Plt Count (150-400) K/uL MPV (7.40-12.00) fL Neut % (Auto) (48.0-80.0) % Lymph % (Auto) (16.0-40.0) % [place] % (Auto) (0.0-15.0) % Eos % (Auto) (0.0-7.0) % Baso % (Auto) (0.0-1.5) % Neut # (Auto) (1.4-5.7) K/uL Lymph # (Auto) (0.6-2.4) K/uL [place] # (Auto) (0.0-0.8) K/uL Eos # (Auto) (0.0-0.7) K/uL Baso # (Auto) (0.0-0.1) K/uL Nucleated RBC % /100WBC Nucleated RBCs # K/uL Sodium (136-145) mmol/L Potassium (3.5-5.1) mmol/L Chloride (98-107) mmol/L Carbon Dioxide (21.0-32.0) mmol/L BUN (7.0-18.0) mg/dL Creatinine (0.6-1.0) mg/dL Est Cr Clr Drug Dosing mL/min Estimated GFR (MDRD) ml/min Glucose (74-106) mg/dL Calcium (8.5-10.1) mg/dL Total Bilirubin (0.2-1.0) mg/dL AST (15-37) IU/L ALT (14-63) IU/L Alkaline Phosphatase (46-116) U/L Total Protein (6.4-8.2) g/dL Albumin (3.4-5.0) g/dL Globulin (2.6-4.0) g/dL Albumin/Globulin Ratio (0.9-1.6) Lipase (73-393) U/L Urine Color YELLOW Urine Appearance CLOUDY Urine pH 6.5 (5.0-8.0) Ur Specific [place] 1.020 (1.001-1.035) Urine Protein 30 H (NEGATIVE) mg/dL Urine Glucose (UA) NEGATIVE (NEGATIVE) mg/dL Urine Ketones 15 H (NEGATIVE) mg/dL Urine Occult Blood LARGE H (NEGATIVE) Urine Nitrite NEGATIVE (NEGATIVE) Urine Bilirubin NEGATIVE (NEGATIVE) Urine Urobilinogen 0.2 (<2.0) EU/dL Ur Leukocyte Esterase NEGATIVE (NEGATIVE) Urine RBC TOO NUMEROUS TO CT H (0-2/HPF) Urine WBC 0-2 (0-5/HPF) Ur Epithelial Cells FEW (NONE-FEW) Urine Bacteria RARE (NEGATIVE) Urine HCG, Qual NEGATIVE (NEGATIVE) Meds: Medications Discontinued Medications Generic Name Dose Route Start Last Admin Trade Name Freq PRN Reason Stop Dose Admin Sodium Chloride 1,000 mls @ 999 mls/hr 03/04/19 10:53 03/04/19 11:32 Normal Saline IV 03/04/19 11:53 999 mls/hr STAT ONE Administration Iopamidol 100 ml 03/04/19 12:29 03/04/19 12:45 Isovue Multipack-370 (76%) IVPUSH 03/04/19 12:30 100 ml ONETIME STA Administration Ketorolac Tromethamine 30 mg 03/04/19 10:53 03/04/19 11:33 Toradol IVPUSH 03/04/19 10:54 30 mg ONETIME ONE Administration Morphine Sulfate 2 mg 03/04/19 13:19 03/04/19 13:28 Morphine IVPUSH 03/04/19 13:20 2 mg ONETIME ONE Administration Ondansetron HCl 4 mg 03/04/19 10:53 03/04/19 11:32 Zofran IVPUSH 03/04/19 10:54 4 mg ONETIME ONE Administration Departure - Departure Time of Disposition: 13:45 Disposition: Home, Self-Care 01 Clinical Impression: Ureterolithiasis - Discharge Information Prescriptions: Hydrocodone/Acetaminophen [[place] 5-325 Tablet] 1 each PO Q6HR PRN #15 tablet PRN Reason: Pain Tamsulosin HCl [Flomax] 0.4 mg PO DAILY 7 Days #7 cap.er.24h Instructions: Kidney Stones, [id number] Referrals: PCP,None [Primary Care Provider] - Forms: ED Department Discharge Additional Instructions: The following information is given to patients seen in the emergency department who are being discharged to home. This information is to outline your options for follow-up care. We provide all patients seen in our emergency department with a follow-up referral. The need for follow-up, as well as the timing and circumstances, are variable depending upon the specifics of your emergency department visit. If you don't have a primary care physician on staff, we will provide you with a referral. We always advise you to contact your personal physician following an emergency department visit to inform them of the circumstance of the visit and for follow-up with them and/or the need for any referrals to a consulting specialist. The emergency department will also refer you to a specialist when appropriate. This referral assures that you have the opportunity for follow-up care with a specialist. All of these measure are taken in an effort to provide you with optimal care, which includes your follow-up. Under all circumstances we always encourage you to contact your private physician who remains a resource for coordinating your care. When calling for follow-up care, please make the office aware that this follow-up is from your recent emergency room visit. If for any reason you are refused follow-up, please contact the [facility] Emergency Department at and asked to speak to the emergency department charge nurse. [facility] [address], [place] [address] [address] [facility] [address] [place] [address] 1. Take medications as prescribed. Caution using [place] as this can cause drowsiness and sedation. Caution nonfunctioning upset at home and do not operate heavy equipment or machinery/drive. 2. You can alternate ibuprofen and Tylenol as directed for pain and discomfort. 3. Follow up with Urology as discussed. 4. Return to the ED as needed and as discussed.
[2019-03-04 11:52] LABS: CHLORIDE,CL 106 mmol/L (98-107); SODIUM,NA 143 mmol/L (136-145)
[2019-03-04] MEDS ORDERED: Iopamidol 755 MG/ML 500 ML Multipack Bottle IVPUSH STA (12:29)
[2019-03-04] MEDS ORDERED: Morphine 2 MG/ML Syringe IVPUSH ONE (13:19)
--- NOTE | 2019-03-04 13:28 | CT ---
CT of the abdomen and pelvis with contrast. HISTORY: Pain TECHNIQUE: Axial CT images were obtained of the abdomen and pelvis following administration of 100 mL of Isovue-370 in the right antecubital fossa without complication. Coronal and sagittal reconstructions obtained. FINDINGS: There are a few tiny pulmonary nodules noted within the lung bases, likely benign given the patient's age. The liver, spleen, adrenal glands, and pancreas appear normal. The gallbladder is normal. There is no bulky retroperitoneal lymphadenopathy or abdominal ascites. There is a delayed left-sided nephrogram with moderate hydronephrosis secondary to a 4 mm obstructing stone just proximal to the left ureterovesicular junction. The large and small bowel are normal in caliber without evidence of obstruction. There is no focal pericolonic inflammation or stranding. The urinary bladder is decompressed. There is a trace free pelvic fluid, grossly unremarkable. Uterus is grossly unremarkable. No suspicious osseous abnormalities identified. IMPRESSION: 1. There is a 4 mm obstructing stone within the distal left ureter with moderate proximal hydronephrosis.
[2019-03-04 14:22] VITALS: BP 123/65
== END 2019-03-04 14:15 | disposition home or self-care (01) ==
LOC: MW.ED 10:41
DX: O90.89 Other complications of the puerperium, not elsewhere classified (principal); N13.2 Hydronephrosis with renal and ureteral calculous obstruction; O86.13 Vaginitis following delivery
CPT/HCPCS: 36415; 74177; 80053; 81001; 81025; 83690; 85025; 87086; 87480; 87491; 87510; 87591; 87660; 96361; 96374; 96375; 99284; J1885; J2270; J2405; J7040; Q9967

== ENCOUNTER 2019-03-25 09:35 | Day surgery (SDC) | payer OTHER ==
[~2019-03-25 09:35] MED LIST: Lactated Ringers 1,000 ML IV SCH; Sodium Chloride 0.9% 10 ML SDV IV PRN; Sodium Chloride 0.9% 10 ML Syringe FLUSH PRN; Sodium Chloride 0.9% 2.5 ML Syringe FLUSH PRN; ceFAZolin 1 GM Vial IV ONE
--- NOTE | 2019-03-25 10:09 | PCM.PREANE ---
Preanesthetic Assessment - Anesthesia/Transfusion/Family Hx Type of Anesthesia Reaction: Excessive Nausea/Vomiting Family History of Anesthesia Reaction: No Transfusion History: No Prior Transfusion(s) - Review of Systems General: No Symptoms Pulmonary: No Symptoms Cardiovascular: No Symptoms Gastrointestinal: No Symptoms Neurological: No Symptoms Other: Reports: None - Physical Assessment NPO Status Date: 03/24/19 NPO Status Time: 22:30 O2 Sat by Pulse Oximetry: 96 Respiratory Rate: 15 Vital Signs: Last Vital Signs Temp 36.5 C 03/25/19 09:50 Pulse 76 03/25/19 09:50 Resp 15 03/25/19 09:50 BP 112/59 L 03/25/19 09:50 Pulse Ox 96 03/25/19 09:50 Height: 1.75 m Weight: 67.585 kg ASA Class: 1 Mental Status: Alert & Oriented x3 Airway Class: Mallampati = 2 (overbite) Dentition: Reports: Broken Tooth/Teeth (left upper chipped tooth) Thyro-Mental Finger Breadths: 3 Mouth Opening Finger Breadths: 3 ROM/Head Extension: Full Lungs: Clear to Auscultation, Normal Respiratory Effort Cardiovascular: Regular Rate, Regular Rhythm - Allergies Allergies/Adverse Reactions: Allergies Allergy/AdvReac Type Severity Reaction Status Date / Time No Known Allergies Allergy Verified 03/22/19 13:02 - Acknowledgements Anesthesia Type Planned: General Anesthesia Pt an Appropriate Candidate for the Planned Anesthesia: Yes Alternatives and Risks of Anesthesia Discussed w Pt/Guardian: Yes Pt/Guardian Understands and Agrees with Anesthesia Plan: Yes PreAnesthesia Questionnaire HEENT History: Reports: None (denies motion sickness) Cardiovascular History: Reports: None Respiratory History: Reports: None Gastrointestinal History: Reports: Other (See Below) Other Gastrointestinal History: ruptured appy Genitourinary History: Reports: None 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: , 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 Other OB/BYN History: Other Musculoskeletal History: dislocated rt shoulder x2 Neurological History: Reports: None Psychiatric History: Reports: Anxiety Endocrine/Metabolic History: Reports: None Hematologic History: Reports: None Immunologic History: Reports: None Oncologic (Cancer) History: Reports: None Dermatologic History: Reports: None - Infectious Disease History Infectious Disease History: Reports: Chicken Pox, Herpes Other Infectious Disease History: HSV-2 - Past Surgical History Head Surgeries/Procedures: Reports: None HEENT Surgical History: Reports: None Cardiovascular Surgical History: Reports: None Respiratory Surgical History: Reports: None GI Surgical History: Reports: Appendectomy Endocrine Surgical History: Reports: None Neurological Surgical History: Reports: None Musculoskeletal Surgical History: Reports: Shoulder Surgery Other Musculoskeletal Surgeries/Procedures:: rt shoulder surgery Oncologic Surgical History: Reports: None - SUBSTANCE USE Smoking Status *Q: Never Smoker Recreational Drug Use History: No - HOME MEDS Home Medications: Home Meds Hydrocodone/Acetaminophen [[place] 5-325 Tablet] 1 each PO Q6HR PRN #15 tablet 03/19 [Rx] Tamsulosin HCl [Flomax] 0.4 mg PO DAILY 7 Days #7 cap.er.24h 03/04/19 [Rx] PNV95/Ferrous Fumarate/FA [ Vitamin Tablet] 1 tab PO DAILY 03/22/19 [ History] - CURRENT (IN HOUSE) MEDS Current Meds: Current Medications Lactated Ringer's (Ringers, Lactated) 1,000 mls @ 100 mls/hr IV ASDIRECTED KARLO Last Admin: 03/25/19 10:01 Dose: 100 mls/hr Sodium Chloride (Saline Flush) 10 ml FLUSH ASDIRECTED PRN PRN Reason: Keep Vein Open Sodium Chloride (Saline Flush) 2.5 ml FLUSH ASDIRECTED PRN PRN Reason: Keep Vein Open Sodium Chloride (Normal Saline) 10 ml IV ASDIRECTED PRN PRN Reason: IV Use Discontinued Medications Cefazolin Sodium (Ancef) 1 gm IV ONCALL ONE Stop: 03/25/19 00:02
[2019-03-25] MEDS ORDERED: Scopolamine 1.5 MG Transdermal Patch ONE (10:23)
[2019-03-25] MEDS ORDERED: fentaNYL 100 MCG/2 ML SDV ONE ×2 (11:51→13:27)
[2019-03-25] MEDS ORDERED: Propofol 200 MG/20 ML SDV ONE (11:51)
[2019-03-25] MEDS ORDERED: Ondansetron 4 MG/2 ML SDV ONE (11:51)
[2019-03-25] MEDS ORDERED: Midazolam 1 MG/ML 2 ML SDV ONE (11:51)
[2019-03-25] MEDS ORDERED: Phenylephrine/Normal Saline 100 MCG/ML 10 ML Syringe ONE (12:26)
--- NOTE | 2019-03-25 13:21 | PCM.POSTAN ---
POST ANESTHESIA ASSESSMENT - MENTAL STATUS Mental Status: Alert, Oriented - RESPIRATORY Respiratory Status: Respiratory Rate WNL, Airway Patent, O2 Saturation Stable - CARDIOVASCULAR CV Status: Pulse Rate WNL, Blood Pressure Stable - GASTROINTESTINAL GI Status: No Symptoms - PAIN Pain Score: 0 - POST OP HYDRATION Hydration Status: Adequate & Stable - OBSERVATIONS Free Text/Narrative:: The patient tolerated the procedure well. There were no apparent anesthetic complications at this time.
[2019-03-25] MEDS ORDERED: Acetaminophen 1,000 MG in Premix Bag 1 BAG IV ONE (13:28)
[2019-03-25] MEDS ORDERED: Ketorolac 30 MG/ML SDV IVPUSH ONE (13:28)
[2019-03-25] MEDS: fentaNYL 100 MCG/2 ML SDV IVPUSH PRN ×2 (13:31→14:29)
[2019-03-25] MEDS ORDERED: fentaNYL 100 MCG/2 ML SDV IVPUSH PRN (14:23)
[2019-03-25 14:39] VITALS: BP 105/55
--- NOTE | 2019-03-25 14:56 | PCM48HPAN ---
Post Anesthesia Note - EVALUATION WITHIN 48HRS OF ANESTHETIC Vital Signs in Normal Range: Yes Patient Participated in Evaluation: Yes Respiratory Function Stable: Yes Airway Patent: Yes Cardiovascular Function Stable: Yes Hydration Status Stable: Yes Pain Control Satisfactory: Yes Nausea and Vomiting Control Satisfactory: Yes Mental Status Recovered: Yes Resp Rate: 13 - COMMENTS/OBSERVATIONS Free Text/Narrative:: The patient has no complaints at this time. Discharge to home per criteria.
--- NOTE | 2019-03-25 20:34 | OR ---
SURGEON: Sharyn Marcial M.D. DATE OF PROCEDURE: 03/25/2019 PREOPERATIVE DIAGNOSIS: Left ureteral stone. POSTOPERATIVE DIAGNOSIS: Left ureteral stone. OPERATIONS: Left ureteroscopy, stone removal. DESCRIPTION OF PROCEDURE: The patient was given general anesthesia. She was placed in dorsal lithotomy position, prepped and draped in sterile drapes. Cystourethroscopy was done, showed the stone to be sitting right at the UVJ. Manipulation of the stone using the Zero tip basket and the grasper, it was possible to remove the stone in its entirety. With that done, the procedure was terminated. The bladder was emptied and the patient was moved to recovery in good condition. LISA / GRANT /[id number]
[2019-03-26] MEDS ORDERED: Prenatal Multivitamin and Multimineral with Iron Tab PO SCH (09:00)
== END 2019-03-25 15:40 | disposition home or self-care (01) ==
LOC: MW.SDS 09:35
PROVIDERS: ATTEND Urology
DX: N20.1 Calculus of ureter (principal); A64 Unspecified sexually transmitted disease
CPT/HCPCS: 36415; 52352; 84703; A9270; C1769; J0131; J1885; J2250; J2370; J2405; J2704; J3010; J7120

== ENCOUNTER 2019-10-27 10:32 | Emergency (ER) | payer SELFPAY ==
--- NOTE | 2019-10-27 10:46 | EDM.PDOC ---
ED HPI GENERAL MEDICAL PROBLEM - General Chief Complaint: Lower Extremity Injury/Pain Stated Complaint: BROKEN ANKLE Time Seen by Provider: 10/27/19 10:33 Source of Information: Reports: Patient History Limitations: Reports: No Limitations - History of Present Illness INITIAL COMMENTS - FREE TEXT/NARRATIVE: HISTORY AND PHYSICAL: History of present illness: Patient is a 29-year-old female presents to the ED today with concern of left ankle injury that occurred last night. Patient states she was walking down her steps and got to the very last step when she misstepped and twisted her left ankle. Patient states she has been able to walk on it since does have pain with doing so. Patient denies any prior injury or trauma to the ankle. Patient denies any other symptoms or concerns. Patient denies fever, chills, chest pain, shortness of breath, or cough. Denies headache, neck stiff ness, change in vision, syncope, or near syncope. Denies nausea, vomiting, abdominal pain, diarrhea, constipation, or dysuria. Has not noted any blood in urine or stool. Patient has been eating and drinking appropriately. Review of systems: As per history of present illness and below otherwise all systems reviewed and negative. Past medical history: As per history of present illness and as reviewed below otherwise noncontributory. Surgical history: As per history of present illness and as reviewed below otherwise noncontributory. Social history: See social history for further information Family history: As per history of present illness and as reviewed below otherwise noncontributory. Physical exam: General: Patient is alert, oriented, and in no acute distress. Patient sitting comfortably on exam table. HEENT: Atraumatic, normocephalic, pupils equal and reactive bilaterally, negative for conjunctival pallor or scleral icterus, mucous membranes moist, TMs normal bilaterally, throat clear, neck supple, nontender, trachea midline. No drooling or trismus noted. No meningeal signs. No hot potato voice noted. Lungs: Clear to auscultation, breath sounds equal bilaterally, chest nontender. Heart: S1S2, regular rate and rhythm without overt murmur Abdomen: Soft, nondistended, nontender. Negative for masses or hepatosplenomegaly. Negative for costovertebral tenderness. Pelvis: Stable nontender. Genitourinary: Deferred. Rectal: Deferred. Skin: Intact, warm, dry. No lesions or rashes noted. Extremities: Negative for cords or calf pain. Neurovascular unremarkable. There is mild edema of the lateral proximal dorsum of the foot with mild pain with palpation of this area. Patient has full range of motion of complete left lower extremity without pain or difficulty. Dorsalis pedis and posterior tibial pulses are grossly intact with capillary refill less than 2 seconds. Neuro: Awake, alert, oriented. Cranial nerves II through XII unremarkable. Cerebellum unremarkable. Motor and sensory unremarkable throughout. Exam nonfocal. Notes: Discussed the importance for follow-up with a primary care provider. Voices understanding and is agreeable to plan of care. Denies any further questions or concerns at this time. Diagnostics: Ankle/Foot XR Therapeutics: Foot splint Prescription: None Impression: Left foot injury Plan: 1. Rest, ice, elevate the affected extremity. You can apply ice 15 minutes on, 15 minutes off. 2. Tylenol and/or Ibuprofen as directed for pain management or discomfort. 3. Follow up with the primary care provider as discussed. Return to the ED as needed and as discussed. Definitive disposition and diagnosis as appropriate pending reevaluation and review of above. left ankle Pain Score (Numeric/FACES): 8 - Related Data Allergies Allergy/AdvReac Type Severity Reaction Status Date / Time No Known Allergies Allergy Verified 10/27/19 10:40 Home Meds: Home Meds Pnv No.95/Ferrous Fum/Folic AC [ Vitamin Tablet] 1 tab PO DAILY [History] Past Medical History - Past Health History Medical/Surgical History: Denies Medical/Surgical History HEENT History: Reports: None Cardiovascular History: Reports: None Respiratory History: Reports: None Gastrointestinal History: Reports: Other (See Below) Other Gastrointestinal History: ruptured appy Genitourinary History: Reports: None, Renal Calculus 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 History: Reports: , Spontaneous Other 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 History: Other Musculoskeletal History: dislocated rt shoulder x2 Neurological History: Reports: None Psychiatric History: Reports: Anxiety Endocrine/Metabolic History: Reports: None Hematologic History: Reports: None Immunologic History: Reports: None Oncologic (Cancer) History: Reports: None Dermatologic History: Reports: None - Infectious Disease History Infectious Disease History: Reports: Chicken Pox, Herpes Other Infectious Disease History: HSV-2 - Past Surgical History Head Surgeries/Procedures: Reports: None HEENT Surgical History: Reports: None Cardiovascular Surgical History: Reports: None Respiratory Surgical History: Reports: None GI Surgical History: Reports: Appendectomy Endocrine Surgical History: Reports: None Neurological Surgical History: Reports: None Musculoskeletal Surgical History: Reports: Shoulder Surgery Other Musculoskeletal Surgeries/Procedures:: rt shoulder surgery Oncologic Surgical History: Reports: None Social & Family History - Family History Family Medical History: Noncontributory Endocrine/Metabolic: Reports: Diabetes, type II - Tobacco Use Smoking Status *Q: Never Smoker - Caffeine Use Caffeine Use: Reports: None Caffeine Use Comment: 1 daily - Recreational Drug Use Recreational Drug Use: No Review of Systems - Review of Systems Review Of Systems: Comprehensive ROS is negative, except as noted in HPI. ED EXAM, GENERAL - Physical Exam Exam: See Below (see dictation) Course - Vital Signs Last Recorded V/S: Last Vital Signs Temp 96.4 F 10/27/19 10:39 Pulse 84 10/27/19 10:39 Resp 16 10/27/19 10:39 BP 107/61 10/27/19 10:39 Pulse Ox 96 10/27/19 10:39 - Orders/Labs/Meds Orders: Active Orders 24 hr Category Date Time Status DME for Discharge [COMM] Stat Oth 10/27/19 11:41 Ordered Departure - Departure Time of Disposition: 11:42 Disposition: Home, Self-Care 01 Clinical Impression: Foot injury Qualifiers: Encounter type: initial encounter Laterality: left Qualified Code(s): S99.922A - Unspecified injury of left foot, initial encounter - Discharge Information Referrals: PCP,None [Primary Care Provider] - Forms: ED Department Discharge Additional Instructions: The following information is given to patients seen in the emergency department who are being discharged to home. This information is to outline your options for follow-up care. We provide all patients seen in our emergency department with a follow-up referral. The need for follow-up, as well as the timing and circumstances, are variable depending upon the specifics of your emergency department visit. If you don't have a primary care physician on staff, we will provide you with a referral. We always advise you to contact your personal physician following an emergency department visit to inform them of the circumstance of the visit and for follow-up with them and/or the need for any referrals to a consulting specialist. The emergency department will also refer you to a specialist when appropriate. This referral assures that you have the opportunity for follow-up care with a specialist. All of these measure are taken in an effort to provide you with optimal care, which includes your follow-up. Under all circumstances we always encourage you to contact your private physician who remains a resource for coordinating your care. When calling for follow-up care, please make the office aware that this follow-up is from your recent emergency room visit. If for any reason you are refused follow-up, please contact the [facility] Emergency Department at and asked to speak to the emergency department charge nurse. [facility] [address] [place] [id number] [facility] [address] [place] [id number] 1. Rest, ice, elevate the affected extremity. You can apply ice 15 minutes on, 15 minutes off. 2. Tylenol and/or Ibuprofen as directed for pain management or discomfort. 3. Follow up with the primary care provider as discussed. Return to the ED as needed and as discussed. - My Orders Last 24 Hours: My Active Orders 10/27/19 11:41 DME for Discharge [COMM] Stat - Assessment/Plan Last 24 Hours: My Active Orders 10/27/19 11:41 DME for Discharge [COMM] Stat
--- NOTE | 2019-10-27 11:22 | CR ---
EXAM DATE: 10/27/19 PATIENT'S AGE: 29 Left ankle: Three views of the left ankle were obtained. Comparison: No prior ankle exam. Ankle mortise is symmetric. No fracture, dislocation or other bony abnormality is seen. Impression: 1. No abnormality is appreciated on left ankle exam. Diagnostic code #1 This report was dictated in [place] Standard Time Report Signed by Proxy. AILEEN
--- NOTE | 2019-10-27 11:26 | CR ---
EXAM DATE: 10/27/19 PATIENT'S AGE: 29 Left foot: Two views of the left foot were obtained. Comparison: No prior left foot study. No discrete fracture or other bony abnormality is seen. Impression: 1. No abnormality is appreciated on two view left foot exam. Diagnostic code #1 This report was dictated in [place] Standard Time Report Signed by Proxy. [facility]ISCH HOSPITALEvelyn
[2019-10-27 12:19] VITALS: BP 105/70; PULSE 78
== END 2019-10-27 12:17 | disposition home or self-care (01) ==
LOC: MW.ED 10:32
DX: S99.922A Unspecified injury of left foot, initial encounter (principal); X50.1XXA Overexertion from prolonged static or awkward postures, initial encounter; Y93.01 Activity, walking, marching and hiking
CPT/HCPCS: 73610-26-LT; 73610-LT; 73620-26-LT; 73620-LT; 99283-25

== ENCOUNTER 2022-07-17 13:09 | Emergency (ER) | payer OTHER ==
[2022-07-17 19:23] VITALS: BP 122/65; PULSE 67
== END 2022-07-17 19:22 | disposition home or self-care (01) ==
LOC: MW.ED 13:09
DX: S99.911A Unspecified injury of right ankle, initial encounter (principal); X50.1XXA Overexertion from prolonged static or awkward postures, initial encounter
CPT/HCPCS: 73610-26-RT; 73610-RT; 99282; 99283

== ENCOUNTER 2023-11-06 00:14 | Emergency (ER) | payer OTHER ==
[2023-11-06] MEDS ORDERED: Acetaminophen 500 MG Tab PO ONE (00:49)
[2023-11-06 01:01] LABS: BASOPHILS ABSOLUTE AUTO 0.04 K/uL (0.00-0.20); BASOPHILS PERCENT AUTO 0.4 % (0.0-1.0); EOSINOPHILS ABSOLUTE AUTO 0.18 K/uL (0.00-0.45); EOSINOPHILS PERCENT AUTO 1.9 % (0.0-6.0); HEMATOCRIT 37.4 % (37.0-47.0); HEMOGLOBIN 13.5 g/dL (12.0-16.0); IMMATURE GRAN ABSOLUTE AUTO 0.02 K/uL (0.00-0.05); IMMATURE GRAN PERCENT AUTO 0.2 % (0.0-0.4); LYMPHOCYTES ABSOLUTE AUTO 2.95 K/uL (1.00-4.80); LYMPHOCYTES PERCENT AUTO 30.5 % (24.0-44.0); MEAN CORPUSCULAR HEMOGLOBIN 32.5 pg (28.0-32.0); MEAN CORPUSCULAR HGB CONC 36.1 g/dL (32.0-36.0); MEAN CORPUSCULAR VOLUME 89.9 fL (83.0-99.0); MEAN PLATELET VOLUME 10.7 fL (9.4-12.3); MONOCYTES ABSOLUTE AUTO 0.67 K/uL (0.00-0.80); MONOCYTES PERCENT AUTO 6.9 % (0.0-8.0); NEUTROPHILS ABSOLUTE AUTO 5.82 K/uL (1.80-7.70); NEUTROPHILS PERCENT AUTO 60.1 % (41.0-71.0); PLATELET COUNT,PLT 248 K/uL (150-400); RED BLOOD CELL COUNT 4.16 M/uL (4.10-5.30); WHITE BLOOD CELL COUNT,WBC 9.68 K/uL (3.9-11.3)
[2023-11-06 01:43] LABS: A/G RATIO 1.2 (0.9-1.6); ALBUMIN 3.8 g/dL (3.4-5.0); BILIRUBIN TOTAL 0.4 mg/dL (0.2-1.0); CALCIUM 9.1 mg/dL (8.5-10.1); CARBON DIOXIDE,CO2 27.6 mmol/L (21.0-32.0); CREATININE 0.8 mg/dL (0.6-1.0); EST CRCL DRUG DOSING (CG) 104.53 mL/min; POTASSIUM,K 3.7 mmol/L (3.5-5.1)
[2023-11-06 01:49] LABS: BILIRUBIN,URINE NEGATIVE (NEGATIVE); COLOR,URINE YELLOW; GLUCOSE,URINE NEGATIVE (NEGATIVE); KETONES,URINE NEGATIVE (NEGATIVE); LEUKOCYTE ESTERASE,URINE TRACE (NEGATIVE); NITRITE,URINE NEGATIVE (NEGATIVE); OCCULT BLOOD,URINE NEGATIVE (NEGATIVE); PROTEIN,URINE NEGATIVE (NEGATIVE); UROBILINOGEN,URINE 0.2 EU/dL (<2.0)
[2023-11-06 01:57] LABS: APPEARANCE,URINE HAZY; RBC,URINE 0-2 (0-2/HPF)
[2023-11-06 01:58] LABS: AMORPHOUS SEDIMENT,URINE MODERATE (NEGATIVE); BACTERIA,URINE FEW (NEGATIVE); EPITHELIAL CELLS,URINE FEW (NONE-FEW)
[2023-11-06 02:43] VITALS: BP 103/63; PULSE 70
== END 2023-11-06 02:42 | disposition home or self-care (01) ==
LOC: MW.ED 00:14
DX: O99.891 Other specified diseases and conditions complicating pregnancy (principal); Z79.899 Other long term (current) drug therapy; Z90.49 Acquired absence of other specified parts of digestive tract; Z3A.01 Less than 8 weeks gestation of pregnancy
CPT/HCPCS: 36415; 76775; 76817; 80053; 81001; 84702; 85025; 86900; 86901; 87086; 99284; A9270; 99283

== ENCOUNTER 2023-11-26 02:18 | Emergency (ER) | payer OTHER ==
[2023-11-26 02:59] LABS: BASOPHILS ABSOLUTE AUTO 0.02 K/uL (0.00-0.20); BASOPHILS PERCENT AUTO 0.1 % (0.0-1.0); EOSINOPHILS ABSOLUTE AUTO 0.05 K/uL (0.00-0.45); EOSINOPHILS PERCENT AUTO 0.3 % (0.0-6.0); HEMATOCRIT 38.1 % (37.0-47.0); IMMATURE GRAN ABSOLUTE AUTO 0.04 K/uL (0.00-0.05); IMMATURE GRAN PERCENT AUTO 0.3 % (0.0-0.4); LYMPHOCYTES ABSOLUTE AUTO 1.43 K/uL (1.00-4.80); LYMPHOCYTES PERCENT AUTO 9.3 % (24.0-44.0); MEAN CORPUSCULAR HEMOGLOBIN 32.3 pg (28.0-32.0); MEAN CORPUSCULAR HGB CONC 36.7 g/dL (32.0-36.0); MEAN PLATELET VOLUME 10.8 fL (9.4-12.3); MONOCYTES ABSOLUTE AUTO 0.75 K/uL (0.00-0.80); MONOCYTES PERCENT AUTO 4.9 % (0.0-8.0); NEUTROPHILS ABSOLUTE AUTO 13.04 K/uL (1.80-7.70); NEUTROPHILS PERCENT AUTO 85.1 % (41.0-71.0); PLATELET COUNT,PLT 266 K/uL (150-400); RED BLOOD CELL COUNT 4.33 M/uL (4.10-5.30); WHITE BLOOD CELL COUNT,WBC 15.33 K/uL (3.9-11.3)
[2023-11-26 03:37] LABS: APPEARANCE,URINE SLT CLOUDY; BILIRUBIN,URINE NEGATIVE (NEGATIVE); COLOR,URINE YELLOW; GLUCOSE,URINE NEGATIVE (NEGATIVE); KETONES,URINE 15 mg/dL (NEGATIVE); LEUKOCYTE ESTERASE,URINE TRACE (NEGATIVE); NITRITE,URINE NEGATIVE (NEGATIVE); OCCULT BLOOD,URINE NEGATIVE (NEGATIVE); PROTEIN,URINE TRACE mg/dL (NEGATIVE); UROBILINOGEN,URINE 0.2 EU/dL (<2.0)
[2023-11-26 03:44] LABS: ALBUMIN 3.8 g/dL (3.4-5.0); BILIRUBIN TOTAL 0.5 mg/dL (0.2-1.0); CALCIUM 9.2 mg/dL (8.5-10.1); CARBON DIOXIDE,CO2 26.4 mmol/L (21.0-32.0); CREATININE 0.9 mg/dL (0.6-1.0); EST CRCL DRUG DOSING (CG) 92.91 mL/min; POTASSIUM,K 3.4 mmol/L (3.5-5.1); PROTEIN TOTAL,TP 7.5 g/dL (6.4-8.2)
[2023-11-26 03:57] LABS: EPITHELIAL CELLS,URINE FEW (NONE-FEW)
[2023-11-26 03:58] LABS: AMORPHOUS SEDIMENT,URINE MODERATE (NEGATIVE); BACTERIA,URINE 1+ (NEGATIVE); MUCUS,URINE MODERATE (NONE-MOD)
[2023-11-26] MEDS ORDERED: Cephalexin 500 MG Cap PO ONE (04:11)
[2023-11-26 04:21] VITALS: BP 115/79; PULSE 79
== END 2023-11-26 04:21 | disposition home or self-care (01) ==
LOC: MW.ED 02:18
DX: O99.891 Other specified diseases and conditions complicating pregnancy (principal); Z79.899 Other long term (current) drug therapy; Z3A.09 9 weeks gestation of pregnancy
CPT/HCPCS: 36415; 76801; 80053; 81001; 84702; 85025; 86900; 86901; 99284; A9270

== ENCOUNTER 2024-06-23 00:21 | Inpatient (IN) | payer OTHER ==
[2024-06-23] MEDS ORDERED: Sodium Chloride 0.9% 20 ML SDV IV PRN (00:38)
[2024-06-23] MEDS ORDERED: Carboprost Tromethamine 250 MCG/1 mL Vial IM PRN (00:38)
[2024-06-23] MEDS ORDERED: Lidocaine 1% 50 ML MDV INJECT PRN (00:38)
[2024-06-23] MEDS ORDERED: Terbutaline 1 MG/ML SDV SUBCUT PRN (00:38)
[2024-06-23] MEDS ORDERED: Methylergonovine 0.2 MG/1 ML Amp IM PRN (00:38)
[2024-06-23] MEDS ORDERED: Water For Irrigation,Sterile 1,000 ML Container IRR PRN (00:38)
[2024-06-23] MEDS ORDERED: Sodium Chloride 0.9% 10 ML Syringe FLUSH PRN (00:38)
[2024-06-23] MEDS ORDERED: Tranexamic Acid IN NACL,ISO-OS 1,000 MG in Premix Bag 1 BAG IV PRN (00:38)
[2024-06-23] MEDS ORDERED: Ondansetron 4 MG/2 ML SDV IVPUSH PRN (00:38)
[2024-06-23] MEDS ORDERED: Misoprostol 200 MCG Tab PO PRN (00:38)
[2024-06-23] MEDS ORDERED: Butorphanol 2 MG/ML SDV IVPUSH PRN (00:38)
[2024-06-23] MEDS ORDERED: Sodium Chloride 0.9% 2.5 ML Syringe FLUSH PRN (00:38)
[2024-06-23] MEDS ORDERED: Oxytocin/0.9 % Sodium Chloride 30 UNIT/500 ML BAG IV SCH (00:45)
[2024-06-23 01:22] LABS: HEMATOCRIT 29.7 % (37.0-47.0); HEMOGLOBIN 10.6 g/dL (12.0-16.0); MEAN CORPUSCULAR HEMOGLOBIN 31.2 pg (28.0-32.0); MEAN CORPUSCULAR HGB CONC 35.7 g/dL (32.0-36.0); MEAN CORPUSCULAR VOLUME 87.4 fL (83.0-99.0); MEAN PLATELET VOLUME 10.6 fL (9.4-12.3); PLATELET COUNT,PLT 244 K/uL (150-400); WHITE BLOOD CELL COUNT,WBC 10.82 K/uL (3.9-11.3)
[2024-06-23] MEDS: Ampicillin 2 GM in Sodium Chloride 0.9% 100 ML IV ONE (01:34)
[2024-06-23] MEDS: Lactated Ringers 1,000 ML IV SCH (01:39)
[2024-06-23] MEDS: Misoprostol 25 MCG (1/4 of 100 MCG) Tab PO PRN (01:52)
[2024-06-23] MEDS: Misoprostol 25 MCG (1/4 of 100 MCG) Tab VAG PRN (01:52)
[2024-06-23] MEDS: Ampicillin 1 GM in Sodium Chloride 0.9% 50 ML IV SCH (05:02)
[2024-06-23] MEDS: Oxytocin/0.9 % Sodium Chloride 30 UNIT/500 ML BAG IV SCH (08:15)
[2024-06-23] MEDS: Ropivacaine HCl/PF 400 MG in Premix Bag 1 BAG EPIDUR SCH (10:14)
[2024-06-23] MEDS ORDERED: ePHEDrine 50 MG/ML SDV IVPUSH PRN ×2 (10:30)
[2024-06-23] MEDS ORDERED: ePHEDrine 50 MG/ML SDV IM PRN (10:31)
[2024-06-23] MEDS: Bupivacaine 0.5% 10 ML SDV ONE (11:16)
[2024-06-23] MEDS: Bupivacaine 0.5% 10 ML SDV INJECT ONE (11:16)
[2024-06-23] MEDS: Phenylephrine HCl In 0.9% NaCl 1 MG/10 ML Syringe ONE (11:16)
[2024-06-23] MEDS: Ropivacaine HCl/PF 200 ML ONE (11:16)
[2024-06-23] MEDS: Phenylephrine HCl In 0.9% NaCl 1 MG/10 ML Syringe IVPUSH PRN (12:16)
[2024-06-23] MEDS ORDERED: Lanolin 100% Cream 7 GM Tube TOP PRN (17:31)
[2024-06-23] MEDS: Ibuprofen 800 MG Tab PO PRN (17:57)
[2024-06-23] MEDS: Acetaminophen 500 MG Tab PO PRN (17:58)
[2024-06-23] MEDS: Witch Hazel Medicated Pads 40/Jar TOP PRN (18:00)
[2024-06-23] MEDS: Benzocaine/Menthol 20%-0.5% Spray 78 GM Cannister TOP PRN (18:00)
[2024-06-24 08:42] LABS: HEMATOCRIT 29.1 % (37.0-47.0); HEMOGLOBIN 10.2 g/dL (12.0-16.0)
[2024-06-24 09:01] VITALS: BP 119/56; PULSE 80
[2024-06-24] MEDS: Docusate Sodium 100 MG Cap PO PRN (12:36)
== END 2024-06-24 17:35 | disposition home or self-care (01) | DRG 806 ==
LOC: MW.OB 00:21 → OBSVTOIN 17:31 → MW.OB 23:10
PROVIDERS: ADMIT Obstetrics & Gynecology Obstetrics; ATTEND Obstetrics & Gynecology Obstetrics
PROC: 10E0XZZ Delivery of Products of Conception, External Approach (ICD-10-PCS; principal; 2024-06-23)
PROC: 3E0P7VZ Introduction of Hormone into Female Reproductive, Via Natural or Artificial Opening (ICD-10-PCS; 2024-06-23)
PROC: 3E0R3BZ Introduction of Anesthetic Agent into Spinal Canal, Percutaneous Approach (ICD-10-PCS; 2024-06-23)
PROC: 00HU33Z Insertion of Infusion Device into Spinal Canal, Percutaneous Approach (ICD-10-PCS; 2024-06-23)
DX: O99.824 Streptococcus B carrier state complicating childbirth (principal); O98.32 Other infections with a predominantly sexual mode of transmission complicating childbirth; Z37.0 Single live birth; O70.0 First degree perineal laceration during delivery; Z3A.39 39 weeks gestation of pregnancy; O99.344 Other mental disorders complicating childbirth; F41.9 Anxiety disorder, unspecified; F32.A Depression, unspecified; F43.10 Post-traumatic stress disorder, unspecified; A60.00 Herpesviral infection of urogenital system, unspecified
CPT/HCPCS: 01967; 36415; 51702; 59025; 85014; 85018; 85027; 86592; 86850; 86900; 86901; A9270-GY; J0290; J0665; J2371; J2590; J2795; J3490; J7120

== ENCOUNTER 2024-10-18 18:19 | Emergency (ER) | payer SELFPAY | END 2024-10-18 19:06 | disposition left against medical advice (07) | LOC: MW.ED 18:19 | DX: Z53.21 Procedure and treatment not carried out due to patient leaving prior to being seen by health care provider (principal) ==